=== PATIENT | female | born 1985 | race Caucasian/White ===

== ENCOUNTER 2017-07-03 09:00 | Inpatient (IN) | payer OTHER ==
[2017-07-06 07:26] VITALS: BMI 25.7
[2017-07-06] MEDS ORDERED: CITRIC ACID/SODIUM CITRATE 30 ML UNIT-DOSE CUP PO ONE (07:50)
[2017-07-06] MEDS ORDERED: ELECTROLYTE-148 SOLN 1,000 ML IV SCH (08:00)
--- NOTE | 2017-07-06 08:01 | HP ---
Past Medical History - Primary Care Physician PCP:: Millie Rosenberg - Admission History Source: Patient - Past Medical History ...: 2 ...Para: 1 ...Term: 1 ...LMP: 10/05/16 ... Weeks Gestation by Dates: 39 ...EDC by Dates: 07/12/17 ...EDC by Sono: 07/06/17 - Past Surgical History Past Surgical History: Yes: None Hx Myomectomy: No Hx Transabdominal Cerclage: No - Smoking History Smoking history: Never smoked Have you smoked in the past 12 months: No - Alcohol/Substance Use Hx Alcohol Use: No History of Substance Use: reports: None - Social History Usual Living Arrangement: Yes: With Spouse History of Recent Travel: No Home Medications - Allergies Allergies/Adverse Reactions: Allergies Allergy/AdvReac Type Severity Reaction Status Date / Time No Known Allergies Allergy Verified 03/25/14 17:01 - Home Medications Home Medications: Ambulatory Orders Vit/Iron Fum/Folic AC [ Tablet] 1 each PO DAILY 03/06/15 Oxycodone HCl/Acetaminophen [Percocet 5-325 mg Tablet -] 1 - 2 tab PO Q4H #20 tablet 03/07/15 Review of Systems - Review of Systems Constitutional: reports: No Symptoms Eyes: reports: No Symptoms HENT: reports: No Symptoms Neck: reports: No Symptoms Cardiovascular: reports: No Symptoms Respiratory: reports: No Symptoms Gastrointestinal: reports: No Symptoms Genitourinary: reports: No Symptoms Breasts: reports: No Symptoms Reported Musculoskeletal: reports: No Symptoms Integumentary: reports: No Symptoms Neurological: reports: No Symptoms Endocrine: reports: No Symptoms Hematology/Lymphatic: reports: No Symptoms Psychiatric: reports: No Symptoms Physical Exam - Maternity Constitutional: Yes: Well Nourished, No Distress Neck: Yes: WNL Cardiovascular: Yes: WNL, Regular Rate and Rhythm Breast(s): Yes: WNL - Abdominal Exam/OB Number of Fetuses: Single Presentation: Vertex Contractions: No Monitor Mode: External Category: I - Vaginal Exam/OB Amniotic Membrane Status: Intact Presentation: Vertex/Position - Physical Exam Musculoskeletal: Yes: WNL Extremities: Yes: WNL Hemorrhage Risk Assessment - Risk Factors Risk Score: 1 Risk Level: Medium Risk Problem List - Problems (1) Breech presentation Code(s): O32.1XX0 - MATERNAL CARE FOR BREECH PRESENTATION, UNSP Assessment/Plan Breech 39 week Previous CS Plan Section
[2017-07-06] MEDS ORDERED: morphine SULFATE/Preservative Free 0.5 MG/ML (1cc Syringe) ONE (08:41)
[2017-07-06] MEDS ORDERED: PROPOFOL 20 ML ONE (08:42)
[2017-07-06] MEDS ORDERED: ePHEDrine SULFATE 50 MG/1 ML AMPULE ONE (08:42)
[2017-07-06] MEDS ORDERED: SUCCINYLCHOLINE CHLORIDE 200 MG/10 ML VIAL ONE (08:44)
[2017-07-06] MEDS ORDERED: BUPIVACAINE 0.75% IN DEXTROSE/PF 2ML AMPULE NR ONE (08:50)
--- NOTE | 2017-07-06 09:49 | OP ---
Operative Note - Note: Operative Date: 07/06/17 Pre-Operative Diagnosis: Previous Section Operation: Repeat low transverse Section Findings: Live female infant Post-Operative Diagnosis: Same as Pre-op Surgeon: Millie Rosenberg [employer] Director: Veronica Worrell Anesthesia: Spinal Estimated Blood Loss (mls): 500 Operative Report Dictated: Yes
[2017-07-06 09:59] LABS: VENOUS PC02 40.1 mmHg (38-52); VENOUS PH 7.36 (7.32-7.42); VENOUS PO2 33.3 mmHg (28-48)
[2017-07-06] MEDS ORDERED: ONDANSETRON 4 MG/2 ML VIAL IVPUSH PRN (10:10)
[2017-07-06] MEDS ORDERED: morphine SULFATE/Preservative Free 0.5 MG/ML (1cc Syringe) EP ONE (10:10)
[2017-07-06] MEDS ORDERED: OXYTOCIN 20 UNITS in 0.9% NS 20 UNIT/1,000 ML INFUS.BAG IV ONE (10:30)
[2017-07-06] MEDS ORDERED: METHYLERGONOVINE MALEATE 0.2 MG/1 ML AMP IM PRN (11:11)
[2017-07-06] MEDS ORDERED: OXYTOCIN 20 UNITS in 0.9% NS 20 UNIT/1,000 ML INFUS.BAG IV SCH (11:15)
[2017-07-06] MEDS ORDERED: TUBERCULIN PPD 5 TU/0.1ML SYRINGE (IN PATIENT USE ONLY) ID ONE (11:30)
[2017-07-06] MEDS ORDERED: IBUPROFEN 800 MG/8 ML IJ IVPB PRN (15:50)
[2017-07-07] MEDS: IBUPROFEN 600 MG TABLET (FP) PO PRN ×2 (08:04→17:29)
[2017-07-07] MEDS: ACETAMINOPHEN 325 MG TABLET (FP) PO PRN ×2 (08:05→17:29)
[2017-07-07] MEDS: SIMETHICONE 80 MG TAB.CHEW (FP) PO PRN ×2 (08:06→17:30)
[2017-07-07 08:10] LABS: BASO % 0.3 % (0-2.0); EOS % 0.4 % (0-4.5); HEMATOCRIT 35.9 % (32.4-45.2); HEMOGLOBIN 11.8 GM/dL (10.7-15.3); LYMPH % 16.6 % (8-40); MCH 29.7 pg (25.7-33.7); MCHC 32.7 g/dl (32.0-36.0); MEAN CELL VOLUME 90.6 fl (80-96); MEAN PLT VOLUME 9.4 fl (7.5-11.1); MONO % 4.4 % (3.8-10.2); NEUT % 78.3 % (42.8-82.8); PLATELET COUNT 232 K/MM3 (134-434); RBC 3.96 M/mm3 (3.60-5.2); RDW 14.5 % (11.6-15.6); WHITE BLOOD COUNT 15.7 K/mm3 (4.0-10.0)
--- NOTE | 2017-07-07 09:03 | PN ---
Post Progress Note - Subjective Subjective: Pt doing well, pain controlled, tolerating diet. Ambulating and voiding. No flatus yet. Tolerating clear diet. Denies CP/SOB/F/C/GEE. Post Day: 1 Type of Delivery: Repeat C/S Vital Signs: Vital Signs Temperature 98.5 F 07/07/17 05:08 Pulse Rate 73 07/07/17 05:08 Respiratory Rate 18 07/07/17 09:00 Blood Pressure 128/60 07/07/17 05:08 O2 Sat by Pulse Oximetry (%) 100 07/06/17 10:45 Breast Exam: Yes: Soft Uterus: Yes: Fundus Firm, Fundus @ umbilicus, Non-tender Incision: Yes: Dressing dry and intact Abdomen/GI: Yes: Abdomen soft, Tender (appropriately tender post op), Tolerating PO. No: Passing flatus Lochia, amount: Small Extremities: Yes: Calves non-tender. No: Edema Perineum: Yes: Intact Activity: Other (to begin ambulation today) - Labs Labs: CBC WBC 15.7 K/mm3 (4.0-10.0) H 07/07/17 06:50 RBC 3.96 M/mm3 (3.60-5.2) 07/07/17 06:50 Hgb 11.8 GM/dL (10.7-15.3) D 07/07/17 06:50 Hct 35.9 % (32.4-45.2) 07/07/17 06:50 MCV 90.6 fl (80-96) 07/07/17 06:50 MCH 29.7 pg (25.7-33.7) 07/07/17 06:50 MCHC 32.7 g/dl (32.0-36.0) 07/07/17 06:50 RDW 14.5 % (11.6-15.6) 07/07/17 06:50 Plt Count 232 K/MM3 (134-434) 07/07/17 06:50 MPV 9.4 fl (7.5-11.1) 07/07/17 06:50 Neutrophils % 78.3 % (42.8-82.8) 07/07/17 06:50 Lymphocytes % 16.6 % (8-40) D 07/07/17 06:50 Monocytes % 4.4 % (3.8-10.2) 07/07/17 06:50 Eosinophils % 0.4 % (0-4.5) 07/07/17 06:50 Basophils % 0.3 % (0-2.0) 07/07/17 06:50 Problem List - Problems (1) delivery delivered Code(s): O82 - ENCOUNTER FOR DELIVERY WITHOUT INDICATION Assessment/Plan 32 y/o POD#1 s/p repeat delivery - AFVSS - CBC pending - regular diet as tolerated - encourage ambulation - routine post op care
[2017-07-07] MEDS ORDERED: BISACODYL 10 MG SUPP.RECT RC PRN (11:11)
[2017-07-07] MEDS ORDERED: oxyCODONE HCL 5 MG TABLET PO PRN (11:11)
--- NOTE | 2017-07-07 12:52 | PN ---
Progress Note (short form) - Note Progress Note: Anesthesiology Post-op 32 y.o. POD#1 s/p C/S under spinal anesthesia. Pt. is OOB in chair, alert in NAD. She feels well. Pain under control. Nausea improved from yesterday. Denies h/a. She is ambulatory. VSS. 32 y.o. woman s/p C/S with stable post-operative course and no apparent anesthesia-related issues. Continue care as per primary team.
[2017-07-08] MEDS: ACETAMINOPHEN 325 MG TABLET (FP) PO PRN ×3 (08:17→18:13)
[2017-07-08] MEDS: IBUPROFEN 600 MG TABLET (FP) PO PRN (08:17)
[2017-07-08] MEDS: SIMETHICONE 80 MG TAB.CHEW (FP) PO PRN ×3 (08:18→18:15)
--- NOTE | 2017-07-08 08:54 | PN ---
Post Progress Note Type of Delivery: Repeat C/S Vital Signs: Vital Signs Temperature 98.5 F 07/07/17 22:00 Pulse Rate 70 07/07/17 22:00 Respiratory Rate 18 07/07/17 22:00 Blood Pressure 109/50 07/07/17 22:00 O2 Sat by Pulse Oximetry (%) 100 07/06/17 10:45 Breast Exam: Yes: Soft Uterus: Yes: Fundus Firm Incision: Yes: Dressing dry and intact, Sutures intact Abdomen/GI: Yes: Abdomen soft, Passing flatus Lochia: Yes: Serosa Lochia, amount: Moderate Extremities: Yes: Calves non-tender Perineum: Yes: Intact Activity: Ambulating - Labs Labs: CBC WBC 15.7 K/mm3 (4.0-10.0) H 07/07/17 06:50 RBC 3.96 M/mm3 (3.60-5.2) 07/07/17 06:50 Hgb 11.8 GM/dL (10.7-15.3) D 07/07/17 06:50 Hct 35.9 % (32.4-45.2) 07/07/17 06:50 MCV 90.6 fl (80-96) 07/07/17 06:50 MCH 29.7 pg (25.7-33.7) 07/07/17 06:50 MCHC 32.7 g/dl (32.0-36.0) 07/07/17 06:50 RDW 14.5 % (11.6-15.6) 07/07/17 06:50 Plt Count 232 K/MM3 (134-434) 07/07/17 06:50 MPV 9.4 fl (7.5-11.1) 07/07/17 06:50 Neutrophils % 78.3 % (42.8-82.8) 07/07/17 06:50 Lymphocytes % 16.6 % (8-40) D 07/07/17 06:50 Monocytes % 4.4 % (3.8-10.2) 07/07/17 06:50 Eosinophils % 0.4 % (0-4.5) 07/07/17 06:50 Basophils % 0.3 % (0-2.0) 07/07/17 06:50 Assessment/Plan condition stable on post op day#2 passing flatus patient c/o pain in the left hand side of the incision but the incisional scr appears intact dry continue current care.
[2017-07-08] MEDS: oxyCODONE HCL 5 MG TABLET PO PRN ×2 (12:36→18:14)
[2017-07-09] MEDS: SIMETHICONE 80 MG TAB.CHEW (FP) PO PRN ×2 (05:01→10:57)
[2017-07-09] MEDS: oxyCODONE HCL 5 MG TABLET PO PRN ×2 (05:02→10:55)
[2017-07-09] MEDS: ACETAMINOPHEN 325 MG TABLET (FP) PO PRN ×2 (05:02→10:56)
--- NOTE | 2017-07-09 07:47 | PN ---
Post Progress Note Post Day: 3 Type of Delivery: Repeat C/S Vital Signs: Vital Signs Temperature 98.0 F 07/08/17 21:00 Pulse Rate 68 07/08/17 21:00 Respiratory Rate 20 07/08/17 21:00 Blood Pressure 109/67 07/08/17 21:00 O2 Sat by Pulse Oximetry (%) 100 07/06/17 10:45 Breast Exam: Yes: Soft Uterus: Yes: Fundus Firm Incision: Yes: Sutures intact Abdomen/GI: Yes: Abdomen soft, Passing flatus Lochia: Yes: Serosa Lochia, amount: Moderate Extremities: Yes: Calves non-tender Perineum: Yes: Intact Activity: Ambulating - Labs Labs: CBC WBC 15.7 K/mm3 (4.0-10.0) H 07/07/17 06:50 RBC 3.96 M/mm3 (3.60-5.2) 07/07/17 06:50 Hgb 11.8 GM/dL (10.7-15.3) D 07/07/17 06:50 Hct 35.9 % (32.4-45.2) 07/07/17 06:50 MCV 90.6 fl (80-96) 07/07/17 06:50 MCH 29.7 pg (25.7-33.7) 07/07/17 06:50 MCHC 32.7 g/dl (32.0-36.0) 07/07/17 06:50 RDW 14.5 % (11.6-15.6) 07/07/17 06:50 Plt Count 232 K/MM3 (134-434) 07/07/17 06:50 MPV 9.4 fl (7.5-11.1) 07/07/17 06:50 Neutrophils % 78.3 % (42.8-82.8) 07/07/17 06:50 Lymphocytes % 16.6 % (8-40) D 07/07/17 06:50 Monocytes % 4.4 % (3.8-10.2) 07/07/17 06:50 Eosinophils % 0.4 % (0-4.5) 07/07/17 06:50 Basophils % 0.3 % (0-2.0) 07/07/17 06:50 Assessment/Plan condition is stable discharge home today continue vitamins motrin for pain management
[2017-07-09 09:00] LABS: BASO % 0.6 % (0-2.0); EOS % 2.1 % (0-4.5); HEMATOCRIT 32.4 % (32.4-45.2); LYMPH % 26.3 % (8-40); MCH 30.6 pg (25.7-33.7); MCHC 34.1 g/dl (32.0-36.0); MEAN CELL VOLUME 89.9 fl (80-96); MEAN PLT VOLUME 8.3 fl (7.5-11.1); MONO % 5.5 % (3.8-10.2); NEUT % 65.5 % (42.8-82.8); PLATELET COUNT 272 K/MM3 (134-434); RBC 3.61 M/mm3 (3.60-5.2); RDW 14.5 % (11.6-15.6); WHITE BLOOD COUNT 7.7 K/mm3 (4.0-10.0)
[2017-07-09 09:43] VITALS: BP 120/73; PULSE 78; TEMP 98.2
--- NOTE | 2017-07-14 17:58 | PATH ---
Surgical Pathology Report Patient Name: VALERIE WOODS [facility]. Rec. 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 Specimen(s) Received PLACENTA Clinical History , 40 weeks, breech presentation, marginal cord insertion, right ovarian cyst Final Diagnosis PLACENTA, SECTION: 519 g THIRD TRIMESTER PLACENTA WITH TRIVASCULAR UMBILICAL CORD AND UNREMARKABLE PLACENTAL MEMBRANES. Electronically Signed Fernanda Mcdaniel M.D. Gross Description The specimen is received fresh labeled placenta and is a 519 gram, 16.0 x 13.5 x 3.2 cm. placenta with attached membranes and umbilical cord. The attached membranes are sanchez, translucent with focal opacities and insert marginally. The umbilical cord measures 10 cm. in length and averages 1.1 cm. in diameter. The cord inserts eccentrically, 2.5 cm. to the nearest margin. No true knots or strictures are identified. Cut surface of the umbilical cord reveals 3 vessels. The surface is gonzalez-blue with minimal fibrin deposition and appropriate caliber vessels. The maternal surface is red-brown with focal defects. Sectioning reveals red-brown, spongy parenchyma. No lesions are identified. Softball Player sections are submitted in three cassettes as follows: 1- membrane rolls and umbilical cord; 2-3- full thickness sections of placenta. /07/13/2017 [facility]07/13/2017
== END 2017-07-09 12:30 | disposition home or self-care (01) | DRG 766 ==
LOC: JLDR 07-06 06:20 → J3W 07-06 11:36
PROVIDERS: ADMIT Obstetrics & Gynecology; ATTEND Obstetrics & Gynecology
PROC: 10D00Z1 Extraction of Products of Conception, Low, Open Approach (ICD-10-PCS; principal; 2017-07-06)
DX: O34.211 Maternal care for low transverse scar from previous cesarean delivery (principal); N85.8 Other specified noninflammatory disorders of uterus; O32.1XX0 Maternal care for breech presentation, not applicable or unspecified; Z3A.39 39 weeks gestation of pregnancy; Z37.0 Single live birth
CPT/HCPCS: 36415; 82803; 85025